=== PATIENT | female | born 2000 | race Caucasian/White ===

== ENCOUNTER 2024-12-31 07:53 | Emergency (ER) | payer BC ==
[2024-12-31 08:34] LABS: BASOPHILS % 1.1 % (0.0-2.0); EOSINOPHILS % 3.2 % (0.0-5.0); HEMATOCRIT. 39.7 % (36.0-48.0); HEMOGLOBIN. 13.2 g/dL (12.0-16.0); LYMPHOCYTES % 30.4 % (20.0-50.0); MEAN PLATELET VOLUME 10.4 fl (7.4-10.4); MONOCYTES % 10.2 % (2.0-8.0); NEUTROPHILS % 55.1 % (40.0-76.0); PLATELET 161 x1000/uL (130-400); RED BLOOD CELL COUNT 4.45 mill/uL (4.2-5.4); RED CELL DISTRIBUTION WIDTH 13.1 % (11.6-14.6)
[2024-12-31] MEDS: SODIUM CHLORIDE 0.9% 1,000 ML IV ONE (08:36)
[2024-12-31 08:49] LABS: INR 1.0
[2024-12-31 08:50] LABS: CREATININE 1.1 mg/dL (0.6-1.0); HCG SCREEN NEGATIVE
[2024-12-31 08:51] LABS: UREA NITROGEN BLOOD 7 mg/dL (9-23)
[2024-12-31 08:53] LABS: ASPARTATE AMINOTRANSFERASE 25 IU/L (<34); BILIRUBIN DIRECT 0.3 mg/dL (<=3.0); BILIRUBIN TOTAL 0.9 mg/dL (0.1-1.0); PHOSPHORUS 2.7 mg/dL (2.5-4.9); PROTEIN TOTAL 7.0 g/dL (6.0-8.3); TROPONIN I HIGH SENSITIVITY < 4 ng/L (3.0-34)
[2024-12-31 08:54] VITALS: BP 120/85; PULSE 90; RESP 11; TEMP 36.7; O2SAT 100
[2024-12-31] MEDS: LORAZEPAM 1MG TABLET PO ONE (09:05)
== END 2024-12-31 09:17 | disposition home or self-care (01) ==
LOC: ER 07:53
DX: R45.1 Restlessness and agitation (principal); R20.0 Anesthesia of skin; Z79.899 Other long term (current) drug therapy
CPT/HCPCS: 99285; 96360; 71045; 80076; 80048; 84703; 83880; 83690; 83735; 84100; 85025; 85610; 84484; 36415; 93005; J7030; 90471